=== PATIENT | female | born 1940 | race Caucasian/White ===

== ENCOUNTER → 2021-12-26 | Outpatient (CLI) | payer MEDICARE, BC ==
--- NOTE | 2021-12-26 09:00 | NUR ---
pt to rad holding area amb. with son, reviewing procedure with pt and son. Patient had toast at 0730 and several sips of coffee also. Checked wt nuclear med and also with cardiopulmonary she stated that due to eating and coffee pt needs to reschedule. Visited with son and patient, gave paper inst. about restrictions of food and caffiene. Son was disappointed that they had not recieved better instructions, records showed that a message was left on her phone, states he did not recieve it
== END ==
LOC: COL.CARD 08:22
DX: R06.09 Other forms of dyspnea (principal)